=== PATIENT | female | born 1935 | race Caucasian/White ===

== ENCOUNTER 2017-11-21 00:39 | Outpatient (CLI) | payer MEDICARE, OTHER, SELFPAY ==
--- NOTE | 2017-11-21 14:00 | DI.RAD_ITS ---
SYMPTOMS/DIAGNOSIS: BILATERAL KNEE PAIN LEFT KNEE: Comparison is made with Nov 27. There is moderate to severe narrowing of the medial femorotibial joint space, stable when compared with the previous exam. There is moderate periarticular spurring and mild sclerosis. There is some widening of the lateral femorotibial joint space, which shows mild spurring. There is mild spurring at the patellofemoral joint. IMPRESSION: Moderate to severe degenerative changes. RIGHT KNEE: Comparison is made with November,. There is severe narrowing of the medial femorotibial joint space and periarticular spurring. There is widening of the lateral femorotibial joint space, which also shows spurring. Spurring is noted at the patellofemoral joint and quadriceps insertion on the patella. IMPRESSION: Severe degenerative changes of the medial femorotibial joint space , not significantly changed from the previous exam.
== END 2017-11-21 00:59 ==
PROVIDERS: PCP Nurse Practitioner; Visit Provider Nurse Practitioner
DX: M25.562 Pain in left knee (principal); M25.561 Pain in right knee; M17.0 Bilateral primary osteoarthritis of knee
CPT/HCPCS: 73562

== ENCOUNTER → 2020-01-27 10:33 | Outpatient (BNVA) | payer MEDICARE, OTHER, SELFPAY | PROVIDERS: PCP Nurse Practitioner; Referring Provider Family Medicine; Visit Provider Student in an Organized Health Care Education/Training Program | DX: M17.11 Unilateral primary osteoarthritis, right knee (principal); M17.12 Unilateral primary osteoarthritis, left knee | CPT/HCPCS: 20610; 99213; J1040 ==

== ENCOUNTER → 2020-04-30 11:48 | Outpatient (BNVA) | payer MEDICARE, OTHER, SELFPAY | PROVIDERS: PCP Nurse Practitioner; Referring Provider Nurse Practitioner; Visit Provider Student in an Organized Health Care Education/Training Program | DX: M17.11 Unilateral primary osteoarthritis, right knee (principal); M17.12 Unilateral primary osteoarthritis, left knee | CPT/HCPCS: 20610; J1040 ==

== ENCOUNTER → 2020-08-06 10:53 | Outpatient (BNVA) | payer MEDICARE, OTHER, SELFPAY | PROVIDERS: PCP Nurse Practitioner; Referring Provider Nurse Practitioner; Visit Provider Student in an Organized Health Care Education/Training Program | DX: M17.11 Unilateral primary osteoarthritis, right knee (principal); M17.12 Unilateral primary osteoarthritis, left knee | CPT/HCPCS: 20610; J1040 ==

== ENCOUNTER → 2020-11-05 11:16 | Outpatient (BNVA) | payer MEDICARE, OTHER, SELFPAY | PROVIDERS: PCP Nurse Practitioner; Referring Provider Nurse Practitioner; Visit Provider Student in an Organized Health Care Education/Training Program | DX: M17.11 Unilateral primary osteoarthritis, right knee (principal); M17.12 Unilateral primary osteoarthritis, left knee | CPT/HCPCS: 20610; J1040 ==

== ENCOUNTER 2021-02-16 15:28 | Outpatient (CLI) | payer MEDICARE, OTHER, SELFPAY ==
--- NOTE | 2021-02-16 15:15 | DI.RAD_ITS ---
Exam(s) XR KNEE RT 3V AP,LAT,EZE EXAM: XR KNEE RT 3V AP,LAT,EZE CLINICAL HISTORY: right knee pain. TECHNIQUE: 2D digital imaging was performed of the right knee. Three views obtained. AP, lateral an d Merchant views were obtained. COMPARISON: CR KNEES BILAT AP PA UP LATS from 11/30/2016 CR KNEES BILAT AP PA UP LATS from 11/30/2016 FINDINGS: Moderately severe degenerative changes are seen in the right knee with joint space narrowing and nicholas articular spurring. The findings are most marked in the medial femoral tibial joint. The bones are intact and normally mineralized. There is a large joint effusion. The soft tissues are unremarkable . IMPRESSION: Moderately severe osteoarthritis of the right knee. DATA REPOSITORY: RADIATION DOSE DELIVERED:
--- NOTE | 2021-02-16 15:15 | DI.RAD_ITS ---
Exam(s) XR KNEE LT 3V AP,LAT,EZE EXAM: XR KNEE LT 3V AP,LAT,EZE CLINICAL HISTORY: left knee pain. TECHNIQUE: 2D digital imaging was performed of the left knee. Three images were obtained. AP, late ral and merchant's views were obtained. COMPARISON: CR LEFT KNEE LIMITED 1 OR 2 VIEWS from 06/10/2009 CR LEFT KNEE LIMITED 1 OR 2 VIEWS from 06/10/2009 CR KNEES BILAT AP PA UP LATS from 11/30/2016 FINDINGS: Moderately severe degenerative changes are seen in the left knee with joint space narrowing and peria rticular spurring. The findings are most marked in the medial femoral tibial and patellofemoral join ts. There is a small joint effusion. No acute fracture or dislocation is seen. The bones are eloy lly mineralized. The soft tissues are unremarkable. IMPRESSION: Moderately severe degenerative changes of the left knee. DATA REPOSITORY: RADIATION DOSE DELIVERED:
--- NOTE | 2021-02-16 15:30 | DI.RAD_ITS ---
Exam(s) XR STANDING ALIGNMENT EXAM: XR STANDING ALIGNMENT CLINICAL HISTORY: bilateral knee pain. TECHNIQUE: 2D digital imaging was performed. COMPARISON: CR XR knee LT 3V AP,lat,herminia from 11/21/2017 CR XR knee RT 3V AP,lat,herminia from 11/21/2017 CR XR knee LT 3V AP,lat,herminia from 11/21/2017 CR XR knee RT 3V AP,lat,herminia from 11/21/2017 FINDINGS: There is mild joint space narrowing in the hips bilaterally. Moderately severe degenerative changes are seen in the knees bilaterally. The ankles are well maintained. No significant leg length discre pancy is noted. IMPRESSION: Moderately severe osteoarthritis of the knees bilaterally. DATA REPOSITORY: RADIATION DOSE DELIVERED:
== END 2021-02-16 15:29 | disposition home or self-care (01) ==
PROVIDERS: PCP Nurse Practitioner; Referring Provider Nurse Practitioner; Visit Provider Student in an Organized Health Care Education/Training Program
DX: M17.0 Bilateral primary osteoarthritis of knee (principal); G89.29 Other chronic pain; M25.561 Pain in right knee; M25.562 Pain in left knee
CPT/HCPCS: 73562; 99214; 77073

== ENCOUNTER → 2021-03-18 13:38 | Outpatient (BNVA) | payer MEDICARE, OTHER, SELFPAY | PROVIDERS: PCP Nurse Practitioner; Referring Provider Nurse Practitioner | DX: Z01.818 Encounter for other preprocedural examination (principal); M17.12 Unilateral primary osteoarthritis, left knee ==

== ENCOUNTER 2021-03-24 14:47 | Outpatient (REF) | payer MEDICARE, OTHER, SELFPAY ==
[2021-03-24 21:54] LABS: HCT 41.2 % (36.0-46.0); HGB 13.1 g/dL (11.2-15.7); MCH 31.2 pg (27.0-33.0); MCHC 31.8 % (32.0-36.0); MCV 98.1 fL (80-95); MPV 9.2 fL (8.0-11.0); Platelet Count 340 10^3/uL (130-400); RDW-SD 46.5 fL; WBC 6.54 10^3/uL (4.4-10.8)
[2021-03-24 22:04] LABS: ALT 20 U/L (14-59); AST 22 U/L (15-37); Albumin 3.8 g/dL (3.4-5.0); Alkaline Phosphatase 100 U/L (46-116); BUN 18 mg/dL (7-18); Bilirubin, Total 0.6 mg/dL (0.2-1.0); CREATININE 0.6 mg/dL (0.55-1.02); Chloride 104 mmol/L (98-107); Glucose 79 mg/dL (74-106); Potassium 3.5 mmol/L (3.5-5.1); Sodium 142 mmol/L (136-145); Total Protein 7.3 g/dL (6.4-8.2)
== END 2021-03-24 14:48 | disposition home or self-care (01) ==
LOC: LBN 14:47
PROVIDERS: PCP Nurse Practitioner; Referring Provider Nurse Practitioner; Visit Provider Nurse Practitioner
DX: M17.11 Unilateral primary osteoarthritis, right knee; R30.0 Dysuria; R35.1 Nocturia
CPT/HCPCS: 80053; 85027; 87086

== ENCOUNTER → 2021-06-01 13:15 | Outpatient (BNVA) | payer MEDICARE, OTHER, SELFPAY | PROVIDERS: PCP Nurse Practitioner; Referring Provider Nurse Practitioner; Visit Provider Student in an Organized Health Care Education/Training Program | DX: M17.0 Bilateral primary osteoarthritis of knee (principal) | CPT/HCPCS: 99214 ==

== ENCOUNTER 2021-06-15 04:11 | Outpatient (CLI) | payer MEDICARE, OTHER, SELFPAY ==
[2021-06-15 12:30] LABS: Source Nasal/Nares
[2021-06-15 23:08] LABS: COVID-19 PCR Negative (Negative)
== END 2021-06-15 04:12 | disposition home or self-care (01) ==
PROVIDERS: PCP Nurse Practitioner; Visit Provider Student in an Organized Health Care Education/Training Program
DX: Z20.822 Contact with and (suspected) exposure to COVID-19 (principal); Z01.818 Encounter for other preprocedural examination
CPT/HCPCS: 87635; U0005

== ENCOUNTER 2021-07-21 01:00 | Outpatient (CLI) | payer MEDICARE, OTHER, SELFPAY ==
[2021-07-21 11:11] LABS: Source Nasal/Nares
[2021-07-21 14:17] LABS: COVID-19 PCR Negative (Negative)
== END 2021-07-21 01:01 | disposition home or self-care (01) ==
LOC: LBO 01:01
PROVIDERS: PCP Nurse Practitioner; Visit Provider Student in an Organized Health Care Education/Training Program
DX: Z20.822 Contact with and (suspected) exposure to COVID-19 (principal); Z01.818 Encounter for other preprocedural examination
CPT/HCPCS: 87635; U0005

== ENCOUNTER 2021-07-23 06:03 | Day surgery (SDC) | payer MEDICARE, OTHER, SELFPAY ==
[2021-07-23] VITALS (10 sets, daily range): BP systolic 113–163; BP diastolic 50–88; PULSE 72–88; RESP 11–17; TEMP 36.4–36.8; O2SAT 95–99; BMI 20.9
--- NOTE | 2021-07-23 06:27 | W.ANESPRE ---
General Info Date of Service Date Performed: 07/23/21 Height: 4 ft 10 in Weight: 45.5 kg Body Mass Index (BMI): 20.9 Surgical Procedure: Operation Date: 07/23/21 08:00 Proposed Procedure Side Surgeon p Medial Unicondylar Knee Arthroplasty Left Daniel Madison MD Meds Allergies and Home Medications Allergies Allergy/AdvReac Type Severity Reaction Status Date / Time No Known Drug Allergies Allergy Verified 07/23/21 06:23 Home Medication Medication Instructions Recorded lexdsolsgw-nzjxpjhxiq-nbllneoa-hyalur 1 ea PO HS 12/21/16 ac 375 mg-300 mg-175 mg-2 mg cap multivitamin (Daily Multiple 1 ea PO DAILY 12/21/16 tablet) krill oil 500 mg capsule 500 mg PO DAILY 07/16/18 acetaminophen 500 mg tablet 500 mg PO Q6H PRN 08/06/20 (Tylenol Extra Strength) aspirin 81 mg tablet,delayed 81 mg PO DAILY 06/01/21 release aspirin 81 mg tablet,delayed 81 mg PO BID Prevent blood clot 30 07/23/21 release days #60 tabs naproxen 250 mg tablet 250 mg PO BID PRN #40 tabs 07/23/21 oxycodone 5 mg tablet 5 mg PO Q4H PRN moderate to severe 07/23/21 pain #18 tabs Current Visit Medications: Current Medications Generic Name Dose Route Start Last Admin Trade Name Freq PRN Reason Stop Dose Admin Acetaminophen 1,000 mg 07/23/21 06:00 Acetaminophen 500 Mg Tab PO 07/23/21 23:59 PREOP KI Celecoxib 400 mg 07/23/21 06:00 Celecoxib 200 Mg Cap PO 07/23/21 23:59 PREOP KI Gabapentin 300 mg 07/23/21 06:00 Gabapentin 300 Mg Cap PO 07/23/21 23:59 PREOP KI Ringer's Solution 1,000 mls @ 100 mls/hr 07/23/21 06:00 IV 08/21/21 23:59 INFUSION KI Cefazolin Sodium/Dextrose 2 gm in 50 mls @ 100 mls/hr 07/23/21 06:00 Ancef Duplex IVPB 07/23/21 16:00 PREOP KI Tranexamic Acid 1,000 mg/ 60 mls @ 360 mls/hr 07/23/21 06:00 Sodium Chloride IVPB 07/23/21 16:00 PREOP KI IV Miscellaneous Supplies 1 each 07/23/21 06:00 Iv Access IV 08/21/21 23:59 DIRECTED KI Sodium Chloride 0 ml 07/23/21 06:00 Normal Saline Flush 10 Ml Syr IV 08/21/21 23:59 PRN PRN Sodium Chloride 0 ml 07/23/21 06:00 Normal Saline 10 Ml Vial IJ 08/21/21 23:59 DIRECTED PRN Sterile Water 0 ml 07/23/21 06:00 Water,Injection,Sterile 10 Ml Vial IJ 08/21/21 23:59 DIRECTED PRN PFSH Active Problems Active Problems: Problem Status Onset Code Hyperlipidemia E78.5 Left knee DJD M17.12 Nocturia R35.1 Sun-damaged skin L57.8 Actinic keratosis L57.0 Basal cell carcinoma, face C44.310 Basal cell carcinoma (BCC) 12/14/18 C44.91 Primary osteoarthritis of both knees 11/11/16 M17.0 Surgical History Surgical History Excision, Lipoma (03/07/14) Left Breast Ganglion Excision (03/07/14) Left Wrist Status post cataract extraction Tobacco Smoking/Tobacco Use Status: Former Tobacco Use Alcohol Alcohol Intake: current Alcohol intake frequency: 0-2 drinks per day Alcohol type: wine Substance Use Substance use: Never Substance use type: does not use Vital Signs and Lab Results Vital Signs Most Recent Vital Signs in EMR: Most Recent Vital Signs Temp Pulse Resp BP Pulse Ox 36.6 C 79 16 147/81 H 99 07/23/21 06:13 07/23/21 06:13 07/23/21 06:13 07/23/21 06:13 07/23/21 06:13 Lab Results Blood Type / Crossmatch: No Data to Display Complete Blood Count: No Data to Display Complete Metabolic Panel: No Data to Display Liver Function Panel: No Data to Display Coagulation Panel: No Data to Display Cardiac Panel: No Data to Display Arterial Blood Gas: No Data to Display Venous Blood Gas: No Data to Display Pancreas Panel: No Data to Display Thyroid Panel: No Data to Display Infectious Disease: Coronavirus (COVID-19)(PCR) Negative (Negative) 07/21/21 10:11 Coronavirus 2019 Source Nasal/Nares 07/21/21 10:11 Blood Cultures: No Data to Display Toxicology Panel: No Data to Display Anesthesia Assessment and Plan Anesthesia History Personal History: No History of Anesthesia Complications Family History: No Family History of Anesthesia Complications Exercise Tolerance Exercise Tolerance: Metabolic Equivalents>4 Pertinent Negatives Pertinent Negatives: No Symptoms of GERD, No Major Cardiovascular Symptoms or Complaints, No Major Pulmonary Symptoms or Complaints and No History of CVA/TIA Cardiac & Pulmonary Exam Cardiac Exam: Normal S1/S2 Heart Sounds Pulmonary Exam: Clear Bilateral Breath Sounds Implantable Cardiac Device Does patient have a Pacemaker or an ICD?: No Airway Exam Known Difficult Airway: No Mallampati Class: 2 Mouth Opening: Normal (> 3cm) Thyromental Distance: Greater than 3 cm Neck Range of Motion: Full ROM Neck Circumference: Normal Teeth Condition: Generalized Poor Dentition (several teeth missing) and Removable Dentures/Plates Upper ASA Classification ASA Score: ASA 2 Emergency Case?: No NPO Status NPO Status: NPO Clears >2 hours, Solids >8 hours Anesthesia Plan Resuscitation Status: Full Code Anesthesia Technique: Spinal Anesthesia Airway Planned: Natural Airway Pain Management: Surgeon and patient request nerve block Monitors Used: Standard Monitors
[2021-07-23] MEDS: Celecoxib 200 MG CAP 400 MG PO (06:46)
[2021-07-23] MEDS: Gabapentin 300 MG CAP PO (06:46)
[2021-07-23] MEDS: Acetaminophen 500 MG TAB 1000 MG PO (06:46)
--- NOTE | 2021-07-23 07:00 | DI.RAD_ITS ---
Exam(s) XR KNEE LT 2V AP,LAT EXAM: XR KNEE LT 2V AP,LAT CLINICAL HISTORY: Postop. TECHNIQUE: 2D digital imaging was performed. COMPARISON: CR XR KNEE RT 3V AP,LAT,EZE from 02/16/2021 FINDINGS: Two views-postop Portable postop AP and cross-table lateral views reveal satisfactory position alignment of the compon ents of the newly placed medial hemiarthroplasty. No fracture or loosening evident. IMPRESSION: DATA REPOSITORY: RADIATION DOSE DELIVERED:
[2021-07-23] MEDS: Lactated Ringers 1,000 ML 100 ML IV (07:04)
[2021-07-23] MEDS: ceFAZolin 2 GM/50 ML BAG IVPB (07:54)
--- NOTE | 2021-07-23 08:29 | W.ANESNERVE ---
Nerve Block Single Injection Procedure Date and Time Date Performed: 07/23/21 Procedure Start: 07:29 Location Where Procedure Performed Procedure Location: Day Surgery Unit Reason Performed: Postoperative Analgesia Requesting Provider: Daniel Madison Timeout Performed Timeout Performed: Yes Monitoring Used ECG, Blood Pressure and SpO2 Sterility Sterility: Hand Hygiene, Surgical Cap, Surgical Mask, Sterile Gloves and Chlorhexidine Sedation Given During Procedure Sedation Given (Indicate Dose Given): No Sedation given Patient Mental Status Patient Mental Status: Awake Nerve Block 1st Nerve Block: Laterality: Left Block Type: Adductor Canal Needle / Catheter Used: 100mm SonoPlex II Local Anesthetic Bolus (Indicate Dose Given): Lidocaine used for local infiltration of skin, Injected in 3-5ml increments after negative blood aspiration and Bupivacaine 0.25% Dose:: 20 ml Additives (Indicate Dose Given): Precedex Dose:: 40 mcg Ultrasound: Sterile probe cover and gel used Ultrasound Image Saved?: Yes Nerve Stimulator: Not Used Paresthesia: None Procedure Tolerated: No Complications and Patient tolerated well Procedure Outcome: Successful Performed By: Florentin Griggs
--- NOTE | 2021-07-23 09:00 | ROE_ITS ---
Date of service: 07/23/21 Time of Service: 07:30 Operative Note Operative Note DATE OF PROCEDURE: 07/23/21 PRE-OP DIAGNOSIS: 1. Left knee medial compartmental arthritis POST-OP DIAGNOSIS: same PROCEDURE: 1. Left knee medial unicompartmental arthroplasty, CPT # 70132 The assistant professor nurse education was medically required as this procedure involves retraction, protection of neurovascular structures, and manipulation of multiple instruments and implants at the same time, which cannot be done without a skilled assistant professor nurse education. SURGEON: Daniel Madison SCRUM PRODUCT OWNER: Divina Hatfield Refer to Anesthesia Record Patient was transported to: PACU Patient's condition: stable Implants: DePuy Sigma HP partial knee size 2 metal-backed tibial tray, 9 mm tibial insert fixed bearing, size 2 femoral component Indications: Please see complete medical record for details. Findings: Largely isolated medial compartment arthritis Procedure Description: The patient was taken to the operating room and transferred to the operating room table. Spinal anesthesia was induced. All bony prominences were well-padded. Preoperative antibiotics and 1 g TXA were administered. A tourniquet was placed loosely over padding high on the patient's thigh. The knee and lower extremity were prepped and draped in the usual sterile fashion. The correct patient, procedure, and side of the procedure were all verified prior to incision. A slightly medial of midline longitudinal approach was used to the knee extending from the superior pole the patella to the distal aspect of the tibial tubercle. The quadriceps tendon, patella borders, and patellar tendon were exposed. A full-thickness arthrotomy was performed starting splitting the quadriceps tendon and leaving a sleeve of tissue on the medial aspect of the patella and taking care to progress along the medial margin the patellar tendon. The MCL was elevated off the proximal medial tibia. The tibial alignment jig was set in place on the anterior medial aspect of the tibia and carefully adjusted to achieve proper alignment in the coronal and sagittal planes. Reciprocating saw was used to create the vertical cut at the medial aspect of the medial tibial eminence taking care to protect the ACL ligament footprint. The transverse cut was then done using the microsagittal saw through the jig taking care to retract and protect the MCL. The bone piece and cut were inspected and found to be appropriate for patient anatomy. A box rasp was used to clean up the cut especially the L component. The 9 mm spacer block was inserted and found to have good equal stability in full extension and 90 degrees of flexion with approximately 2 mm of joint space opening in 20-30 degrees of flexion. With the knee in extension, the tibial trial spacer block was used to naren the rotational alignment and anterior extent of the femoral component. The spacer block was removed and the tibia was sized with the depth gauge. The distal femoral cutting block was inserted taking care to orient it appropriately. The cut was done using the saw through the guide. The guide was removed, and the femur was sized with the femoral sizing blocks. The appropriate sized cutting jig was selected. Care was taken to ensure the block was flush with the resected distal femur bone surface. A curved gouge was used to cut the profile of the proximal tip of the femoral prosthesis, naren the extent of the anterior chamfer cut, and prevent trochlear cartilage delamination. The posterior cut was done through the jig, the anterior cut was done using the osteotomes, the posterior chamfer cut was done through the jig, and the drill was used to drill the 2 peg holes. The cutting block and bone cuts were removed. The medial meniscus remnant was removed. The femoral component trial was placed in the distal femur and the 9 mm spacer block confirmed appropriate balancing in flexion, extension, and again 2 mm of medial joint space opening in 20-30 degrees of flexion. Tibial template was inserted and the size confirmed to be appropriate. The keel was used by hand to remove bone from the slot and the tibial peg drill was used in the peg hole. The pulse lavage was used to clean the bone surfaces. SmartSet medium viscosity cement was prepared. At the appropriate time during the early working phase, the cement was applied to the backside of the tibial and femoral components. Then, cement was carefully placed and pressurized into the proximal tibia taking care to only have minimal cement posteriorly. The tibial component was inserted at an angle and then impacted directing pressure from posterior to anterior to keep the flow of cement from posterior to anterior. Cement was then applied to the distal femur and the femoral component impacted. Excess cement was removed. The knee was brought into full extension and this position with axial load was maintained until the cement was completely hardened at 16 minutes. Tibial tray mechanical and auto body car checker was removed, and the final tibial insert was inserted and clicked into place. The knee was tested through range of motion found to be stable with equal balancing from full extension to flexion past 90 degrees and a couple millimeters of medial joint space opening in 20-30 degrees of flexion. The wound was copiously irrigated with the pulse lavage and then Irrisept. Local anesthetic mixture of ropivacaine clonidine ketorolac and epinephrine was infiltrated about the surgical site. Appropriate hemostasis was achieved. The capsule was approximated using #1 Vicryl in a figure-of-8 interrupted fashion and then closed using Stratafix #1 PDS barbed suture in a running fashion. The superficial layers were irrigated. Subcutaneous tissue was closed using 2-0 Monocryl in a buried interrupted fashion. Skin was closed using 3-0 Monocryl in a buried subcuticular fashion. The skin incision was glued and then covered with a Mepilex Ag dressing. An Mark wrap was applied from the foot up to the thigh. The patient awoke from anesthesia without complication was transferred to the recovery room in stable condition.
--- NOTE | 2021-07-23 10:28 | W.PM.DSUDISC ---
Discharge Plan Disposition Patient Disposition: HOME Condition: Stable Discharge Details Reason For Visit: Left knee surgery Attending Provider: Daniel Madison Primary Care Provider: Mattie Perez Home Meds and New Rx's Prescriptions: New naproxen 250 mg tablet 250 mg PO BID PRNQty: 40 0RF Rx Instructions: take with a meal aspirin 81 mg tablet,delayed release (DR/EC) 81 mg PO BID 30 Days Qty: 60 0RF oxycodone 5 mg tablet 5 mg PO Q4H MDD 30 mg PRN (Reason: moderate to severe pain) Qty: 18 0RF Continued krill oil 500 mg capsule 500 mg PO DAILY acetaminophen [Tylenol Extra Strength] 500 mg tablet 500 mg PO Q6H PRN aspirin 81 mg tablet,delayed release (DR/EC) 81 mg PO DAILY multivitamin [Daily Multiple] 1 EACH tablet 1 ea PO DAILY glucosam-chond yt-zbmgos-yx ac 1 EACH capsule 1 ea PO HS Discontinued ibuprofen 200 mg Tablet 200 mg PO Q6H PRN Discharge Instructions Additional Instructions: Surgery: Left medial unicondylar knee replacement Activity: Weightbearing as tolerated. Recommend elevation to minimize swelling and discomfort. Walk as comfort allows. May use walker as needed for support/safety. It is important to restore full knee extension as soon as possible. May gently progress knee flexion over the next few weeks. Do not rest with pillows behind knee to prevent knee from getting stuck bent. Physical therapy prescription will be sent electronically to start in a few weeks Prescriptions: Aspirin 81 mg take 1 twice a day to prevent a blood clot 30 days Naproxen 250 mg take 1-2 every 12 hours with a meal as needed for moderate pain Oxycodone 5 mg take 1-2 every 4-6 hours as needed for severe pain You may use akhc-nfn-jtcdjyg Tylenol (acetaminophen) as needed for mild pain. These pain medications may be taken all at once or in different combinations as needed. Also, recommend Colace (docusate) as a stool softener as surgery and pain medicine cause constipation. Dressings: Leave Band-Aid in place until follow-up. Keep clean and dry at all times. May remove Mark wrap tomorrow. May re-wrap with Mark wrap to help control swelling as needed. Follow-up: 10-[address] Madison You may take off the leg compression Mark wrap and stockings tomorrow at home. You may also leave them on a few days longer if you have a history of leg swelling or edema. Let us know right away if you develop any redness, drainage, fevers, chest pain, or trouble breathing. Do not drink alcohol or drive for at least 24 hours after anesthesia. Please call the office during business hours with any questions or concerns. Referrals: Daniel Madison MD [ [facility] STAFF PHYSICIAN] - Discharge Orders Discharge Orders: Discharge Order (Routine); Ordered 07/23/21 Ordered By: Daniel Madison DS: Diagnosis Discharge Diagnosis (1) Left knee DJD: Status: Acute
[2021-07-23] MEDS: fentaNYL 100 MCG/2 ML VIAL IVP (11:21)
--- NOTE | 2021-07-23 12:08 | W.ANESPOSTOP ---
Postoperative Evaluation Date, Time and Location Date Performed: 07/23/21 Time Performed: 11:08 Patient Location: Day Surgery Unit Vital Signs Most Recent Imported Vital Signs: Most Recent Vital Signs Temp Pulse Resp BP Pulse Ox 36.6 C 75 14 130/71 97 07/23/21 11:57 07/23/21 11:57 07/23/21 11:57 07/23/21 11:57 07/23/21 11:57 Pain Score Most Recent Pain Score: Most Recent Pain Score Pain Level 0 07/23/21 11:57 Assessment Mental Status: Awake (Alert & Oriented to Patient Baseline) Airway and Respiratory Function: Patent airway with normal (patient baseline) respiratory exam Cardiovascular Function: Hemodynamically Stable Hydration Status: Adequately Hydrated Nausea & Vomiting: No Nausea or Vomiting Pain: Pt. Denies Any Pain Peripheral Nerve Block: Regional nerve block not resolved at time of post operative discharge
[2021-07-23] MEDS: ceFAZolin 1 GM/50 ML BAG IVPB (12:57)
[2021-07-23] MEDS: Naproxen 500 MG TAB PO (14:19)
== END 2021-07-23 15:50 | disposition home or self-care (01) ==
PROVIDERS: PCP Nurse Practitioner; Visit Provider Student in an Organized Health Care Education/Training Program
PROC: (CPT 27446; principal; 2021-07-23 07:30)
DX: M17.12 Unilateral primary osteoarthritis, left knee (principal); E78.5 Hyperlipidemia, unspecified; Z87.891 Personal history of nicotine dependence
CPT/HCPCS: 27446; 99214; 73560; J0690; J1100; J2405; J3010

== ENCOUNTER 2021-08-04 14:31 | Outpatient (CLI) | payer MEDICARE, OTHER, SELFPAY ==
--- NOTE | 2021-08-04 13:15 | DI.RAD_ITS ---
Exam(s) XR KNEE LT 2V AP,LAT EXAM: XR KNEE LT 2V AP,LAT CLINICAL HISTORY: first post op visit. TECHNIQUE: 2D digital imaging was performed. Two images were obtained. AP and lateral views were ob tained. COMPARISON: CR XR KNEE RT 3V AP,LAT,EZE from 02/16/2021 CR XR KNEE LT 2V AP,LAT from 07/23/2021 FINDINGS: BONES: There are stable post operative changes present. No fracture or dislocation. JOINTS: The orthopedic hardware is in good position. Zihp-ec-nahvuuwr degenerative changes are seen in the lateral femoral tibial and patellofemoral joint. There is a small joint effusion. SOFT TISSUE: Normal. IMPRESSION: Stable postoperative changes. DATA REPOSITORY: RADIATION DOSE DELIVERED:
== END 2021-08-04 14:32 | disposition home or self-care (01) ==
LOC: DIORS 14:32
PROVIDERS: PCP Nurse Practitioner; Referring Provider Nurse Practitioner; Visit Provider Physician Assistant Surgical
DX: Z96.652 Presence of left artificial knee joint (principal)
CPT/HCPCS: 73560

== ENCOUNTER 2021-09-22 13:44 | Outpatient (CLI) | payer MEDICARE, OTHER, SELFPAY ==
--- NOTE | 2021-09-22 13:30 | DI.RAD_ITS ---
Exam(s) XR KNEE LT 2V AP,LAT EXAM: XR KNEE LT 2V AP,LAT CLINICAL HISTORY: left knee pain. TECHNIQUE: 2D digital imaging was performed. COMPARISON: CR XR KNEE LT 2V AP,LAT from 07/23/2021 CR XR KNEE LT 2V AP,LAT from 08/04/2021 FINDINGS: Two views There is continued stable position alignment of the components of the recently placed medial hemiarth roplasty. No fracture or loosening evident. Lateral compartment maintains height. IMPRESSION: DATA REPOSITORY: RADIATION DOSE DELIVERED:
== END 2021-09-22 13:45 | disposition home or self-care (01) ==
LOC: DIORS 13:45
PROVIDERS: PCP Nurse Practitioner; Referring Provider Nurse Practitioner; Visit Provider Student in an Organized Health Care Education/Training Program
DX: M25.562 Pain in left knee (principal); Z47.1 Aftercare following joint replacement surgery; Z96.652 Presence of left artificial knee joint
CPT/HCPCS: 73560

== ENCOUNTER → 2021-10-18 15:33 | Outpatient (CLI) | payer MEDICARE, OTHER, SELFPAY ==
--- NOTE | 2021-10-18 11:45 | DI.RAD_ITS ---
Exam(s) XR SACRUM COCCYX EXAM: XR SACRUM COCCYX CLINICAL HISTORY: INJURY TO TAILBONE/LOWER BACK--S39.92XA. TECHNIQUE: 2D digital imaging was performed. COMPARISON: No exams were available for comparison FINDINGS: 3 views Advanced disc space narrowing at L5-S1 noted. Also facet arthropathy L4-5 and L5-S1 levels evident. Sacroiliac joints appear age-appropriate. No ankylosis. Partially visualized hip joint spaces unre markable. No sacral fracture identified. No osseous lesions. Calcification in the mid pelvis is probably with in a calcified uterine fibroid. IMPRESSION: DATA REPOSITORY: RADIATION DOSE DELIVERED:
== END ==
PROVIDERS: PCP Nurse Practitioner; Visit Provider Student in an Organized Health Care Education/Training Program
DX: M47.816 Spondylosis without myelopathy or radiculopathy, lumbar region (principal); M47.817 Spondylosis without myelopathy or radiculopathy, lumbosacral region
CPT/HCPCS: 72220

== ENCOUNTER 2021-11-10 14:06 | Outpatient (CLI) | payer MEDICARE, OTHER, SELFPAY ==
--- NOTE | 2021-11-10 13:15 | DI.RAD_ITS ---
Exam(s) XR KNEE LT 2V AP,LAT EXAM: XR KNEE LT 2V AP,LAT CLINICAL HISTORY: LEFT KNEE F/U. TECHNIQUE: 2D digital imaging was performed. COMPARISON: CR XR KNEE LT 2V AP,LAT from 09/22/2021 FINDINGS: Two views: There is continued stable appearance of the components of the medial hemiarthroplasty. No fracture o r loosening evident. Lateral compartment maintains normal height. IMPRESSION: DATA REPOSITORY: RADIATION DOSE DELIVERED:
== END 2021-11-10 14:07 | disposition home or self-care (01) ==
LOC: DIORS 14:07
PROVIDERS: PCP Nurse Practitioner; Referring Provider Nurse Practitioner; Visit Provider Student in an Organized Health Care Education/Training Program
DX: M25.562 Pain in left knee (principal); Z96.652 Presence of left artificial knee joint
CPT/HCPCS: 99214; 73560

== ENCOUNTER 2022-02-23 11:11 | Outpatient (CLI) | payer MEDICARE, OTHER, SELFPAY ==
--- NOTE | 2022-02-23 12:19 | DI.RAD_ITS ---
Exam(s) XR KNEE LT 2V AP,LAT EXAM: XR KNEE LT 2V AP,LAT CLINICAL HISTORY: s/p left UKA. TECHNIQUE: 2D digital imaging was performed of the left knee. Two images were obtained. AP and lat eral views were obtained. COMPARISON: CR XR KNEE LT 2V AP,LAT from 11/10/2021 FINDINGS: BONES: No acute fracture is present. No bony destructive lesion is seen. JOINTS: The knee is normally aligned. There is a small joint effusion. There are stable postsurgical changes of a partial left knee replacement. Degenerative changes are seen in the lateral femoral ti bial patellofemoral joints. SOFT TISSUE: Atherosclerosis is present. IMPRESSION: Stable left knee replacement. DATA REPOSITORY: RADIATION DOSE DELIVERED:
== END 2022-02-23 11:12 | disposition home or self-care (01) ==
LOC: DIORS 11:11
PROVIDERS: PCP Nurse Practitioner; Referring Provider Nurse Practitioner; Visit Provider Physician Assistant
DX: Z96.652 Presence of left artificial knee joint (principal)
CPT/HCPCS: 99213; 73560

== ENCOUNTER → 2022-02-28 10:39 | Outpatient (BNVA) | payer MEDICARE, OTHER, SELFPAY | PROVIDERS: PCP Nurse Practitioner; Referring Provider Nurse Practitioner; Visit Provider Physical Therapy Assistant | DX: S81.802D Unspecified open wound, left lower leg, subsequent encounter (principal); V89.2XXD Person injured in unspecified motor-vehicle accident, traffic, subsequent encounter; R60.0 Localized edema | CPT/HCPCS: 99213 ==

== ENCOUNTER 2022-07-26 12:00 | Outpatient (CLI) | payer MEDICARE, OTHER, SELFPAY ==
--- NOTE | 2022-07-26 11:00 | DI.RAD_ITS ---
Exam(s) XR KNEE LT 2V AP,LAT EXAM: XR KNEE LT 2V AP,LAT CLINICAL HISTORY: F/U SURGERY. TECHNIQUE: 2D digital imaging was performed. Two images were obtained. AP and lateral views were ob tained. COMPARISON: CR XR KNEE LT 2V AP,LAT from 02/23/2022 FINDINGS: BONES: There are stable post operative changes present. No fracture or dislocation. The bones are os teopenic. JOINTS: The orthopedic hardware is in good position. No evidence of hardware loosening. Degenerativ e changes are seen in the lateral femoral tibial and patellofemoral joints with periarticular spurrin g present. There is a small joint effusion. SOFT TISSUE: Normal. IMPRESSION: 1. Stable postoperative changes. 2. Degenerative changes in the knee. DATA REPOSITORY: RADIATION DOSE DELIVERED:
== END 2022-07-26 12:01 | disposition home or self-care (01) ==
LOC: DIORS 12:00
PROVIDERS: PCP Nurse Practitioner; Referring Provider Nurse Practitioner; Visit Provider Student in an Organized Health Care Education/Training Program
DX: Z47.1 Aftercare following joint replacement surgery (principal); Z96.652 Presence of left artificial knee joint
CPT/HCPCS: 99213; 73560

== ENCOUNTER 2023-01-18 12:46 | Outpatient (REF) | payer MEDICARE, OTHER, SELFPAY ==
--- NOTE | 2023-01-18 12:00 | SKI_PTH ---
PATIENT: Heike Villanueva LOC: N U#:[id number] AGE/SX: 87/F ROOM: RE01/18/[address]: Kodi Freitas MD : [id number] BED: DIS: 01/18/2023 SPEC #: [id number] RECD: 01/18/23 14:15 STATUS: FIGUEROA REMary #: [id number] MAGALY: 01/18/23 12:[address]: Kodi Freitas DEPT: Surgical Specimen RECD BY: Francy Lopez ENTERED: 01/18/23 14:16 SP TYPE: ERENDIRA BLACKMAN DR: Mattie Perez APRN Tissues: 1 - SKIN BIOPSY(SHAVE/PUNCH) Procedures: SKIN LEVEL 4 Comments: [id number]
== END 2023-01-18 12:47 | disposition home or self-care (01) ==
LOC: LBN 12:46
PROVIDERS: PCP Nurse Practitioner; Visit Provider Otolaryngology
DX: L82.1 Other seborrheic keratosis (principal)
CPT/HCPCS: 88305

== ENCOUNTER 2023-01-25 10:27 | Outpatient (CLI) | payer MEDICARE, OTHER, SELFPAY ==
--- NOTE | 2023-01-25 10:15 | DI.RAD_ITS ---
Exam(s) XR KNEE LT 2V AP,LAT EXAM: XR KNEE LT 2V AP,LAT CLINICAL HISTORY: F/U LEFT UKA. TECHNIQUE: 2D digital imaging was performed. Three views. COMPARISON: CR XR KNEE LT 2V AP,LAT from 09/22/2021 CR XR KNEE LT 2V AP,LAT from 11/10/2021 CR XR KNEE LT 2V AP,LAT from 02/23/2022 CR XR KNEE LT 2V AP,LAT from 07/26/2022 FINDINGS: BONES: No acute fracture is present. No bony destructive lesion is seen. JOINTS: Has been no change in the alignment of the medial femoral tibial joint space prosthesis no vaughn int effusion is seen. SOFT TISSUE: Normal. IMPRESSION: Stable appearance of medial femoral tibial prosthesis. DATA REPOSITORY: RADIATION DOSE DELIVERED:
== END 2023-01-25 10:28 | disposition home or self-care (01) ==
LOC: DIORS 10:28
PROVIDERS: PCP Nurse Practitioner; Referring Provider Nurse Practitioner; Visit Provider Student in an Organized Health Care Education/Training Program
DX: Z47.1 Aftercare following joint replacement surgery (principal); Z96.652 Presence of left artificial knee joint
CPT/HCPCS: 99214; 73560

== ENCOUNTER → 2023-04-03 11:23 | Outpatient (BNVA) | payer MEDICARE, OTHER, SELFPAY | PROVIDERS: PCP Nurse Practitioner; Referring Provider Nurse Practitioner; Visit Provider Student in an Organized Health Care Education/Training Program | DX: Z47.1 Aftercare following joint replacement surgery (principal); T84.84XA Pain due to internal orthopedic prosthetic devices, implants and grafts, initial encounter; Z96.652 Presence of left artificial knee joint | CPT/HCPCS: 99215 ==

== ENCOUNTER → 2023-05-29 13:00 | Outpatient (BNVA) | payer MEDICARE, OTHER, SELFPAY | PROVIDERS: PCP Nurse Practitioner; Referring Provider Nurse Practitioner; Visit Provider Student in an Organized Health Care Education/Training Program | DX: Z47.1 Aftercare following joint replacement surgery (principal); T84.84XA Pain due to internal orthopedic prosthetic devices, implants and grafts, initial encounter; Z96.652 Presence of left artificial knee joint | CPT/HCPCS: 99214 ==

== ENCOUNTER 2023-08-21 16:01 | Outpatient (CLI) | payer MEDICARE, OTHER, SELFPAY ==
--- NOTE | 2023-08-21 13:45 | DI.RAD_ITS ---
Exam(s) XR KNEE LT 3V AP,LAT,EZE EXAM: XR KNEE LT 3V AP,LAT,EZE CLINICAL HISTORY: eval change in subsidence L UKA. TECHNIQUE: 2D digital imaging was performed. COMPARISON: CR XR KNEE LT 2V AP,LAT from 01/25/2023 FINDINGS: 3 views Stable position alignment of the components of the medial hemiarthroplasty. No evidence of fracture or loosening. No evidence of osteomyelitis. Lateral compartment maintains normal height. There is a joint effusion again noted. IMPRESSION: Stable satisfactory appearance. DATA REPOSITORY: RADIATION DOSE DELIVERED:
== END 2023-08-21 16:02 | disposition home or self-care (01) ==
LOC: DIORS 16:02
PROVIDERS: PCP Nurse Practitioner; Referring Provider Nurse Practitioner; Visit Provider Student in an Organized Health Care Education/Training Program
DX: T84.84XA Pain due to internal orthopedic prosthetic devices, implants and grafts, initial encounter (principal); Z47.1 Aftercare following joint replacement surgery; Z96.652 Presence of left artificial knee joint
CPT/HCPCS: 73562; 99213